=== PATIENT | female | born 1970 | race Caucasian/White ===

== ENCOUNTER 2023-10-22 18:48 | Emergency (ER) | payer SELFPAY ==
[2023-10-22] MEDS: Orphenadrine 60 MG/2 ML Inj IM ONE (21:07)
[2023-10-22] MEDS: diphenhydrAMINE 50 MG/ML SDV IM ONE (21:08)
== END 2023-10-22 21:59 | disposition home or self-care (01) ==
LOC: MW.ED 18:48
DX: R51.9 Headache, unspecified (principal); I10 Essential (primary) hypertension; Z79.899 Other long term (current) drug therapy
CPT/HCPCS: 70450; 93005; 96372; 99284; J1200; J2360; 93010; 99283